=== PATIENT | female | born 1960 | race Hispanic/Latino ===

== ENCOUNTER 2024-06-18 08:55 | Emergency (ER) | payer OTHER ==
--- NOTE | 2024-06-18 09:53 | RAD REPORT ---
Exam:Shoulder Left 2+ Views HISTORY: Left shoulder pain FINDINGS: No fracture seen. Borderline widening AC joint may indicate a mild sprain of the ligament.
[2024-06-18 09:55] LABS: Specific Gravity 1.029 (1.005-1.030); Sqamous Epithelial <5 /HPF (None Seen); Urine Bacteria None Seen /HPF (<20); Urine Bilirubin NEGATIVE (Negative); Urine Blood Negative (Negative); Urine Clarity Clear (Clear); Urine Color Light-Yellow (Yellow); Urine Culture Reflex Order NOT NEEDED; Urine Glucose NEGATIVE (Negative); Urine Ketones NEGATIVE (Negative); Urine Micro Reflex YN NO BILL MICROSCOPIC; Urine Mucus Slight /HPF (None Seen); Urine Nitrite NEGATIVE (Negative); Urine Protein NEGATIVE (Negative); Urine RBC <5 /HPF (None Seen); Urine Urobilinogen Normal (Normal); Urine WBC <5 /HPF (<5); Urine pH 5.5 (5.0-7.0)
[2024-06-18] MEDS ORDERED: IBUPROFEN 200 MG TAB PO ONE (09:58)
[2024-06-18] MEDS ORDERED: methocarbamoL 750 MG TAB ONE (09:58)
--- NOTE | 2024-06-18 10:11 | EDPHYS ---
Physician Documentation [facility] Name: Diann Jack Age: 64 yrs Sex: Female : 1960 Arrival Date: 06/18/2024 Time: 08:55 Bed 14 Private MD: ED Physician Eros Paiz HPI: 06/18 09:30 This 64 yrs old Female presents to ER via Ambulatory with complaints of cp Shoulder Injury. 09:30 The patient or guardian complains of an injury, pain, that is acute. posterior and cp upper shoulder. Context: resulted from a fall, The patient reports no obvious deformity. Onset: The symptoms/episode began/occurred yesterday. Modifying factors: The symptoms are aggravated by movement. Details of fall: The patient fell from an upright position, while standing. Patient also concerned about possible uti and reports not finishing prescribed antibiotic recently. Denies any urinary symptoms. Historical: - Allergies: 09:18 No Known Allergies; hb - Home Meds: 09:18 None [Active]; hb - PMHx: 09:18 Breast CA; hb - PSHx: 09:18 Breast Reconstruction; Liposuction; section; x 3; Bilat Ears; hb - Immunization history:: Adult Immunizations up to date. - Infectious Disease History:: Denies. - Social history:: Smoking status: Patient denies any tobacco usage or history of. ROS: 09:35 Eyes: Negative for injury, pain, redness, and discharge, cp 09:35 Constitutional: Negative for body aches, chills, fever, poor PO intake, 09:35 ENT: Negative for drainage from ear(s), ear pain, sore throat, difficulty swallowing, difficulty handling secretions, 09:35 Neck: Positive for left side pain, Negative for stiffness, 09:35 Cardiovascular: Negative for chest pain, palpitations, 09:35 Respiratory: Negative for cough, shortness of breath, wheezing, 09:35 Abdomen/GI: Negative for abdominal pain, nausea, vomiting, and diarrhea, 09:35 MS/extremity: Positive for pain, tenderness, of the left shoulder, Negative for deformity, paresthesias, 09:35 Neuro: Negative for altered mental status, dizziness, headache, loss of consciousness, syncope, weakness, 09:35 All other systems are negative, Exam: 09:40 Constitutional: The patient appears in no acute distress, alert, awake, non-toxic, well cp developed, well nourished, uncomfortable, 09:40 Head/Face: Normocephalic, atraumatic. cp 09:40 Neck: C-spine: vertebral tenderness, is not appreciated, crepitus, is not appreciated, ROM/movement: limited range of motion, is not appreciated, mild left side lateral tenderness, 09:40 Chest/axilla: Inspection: normal, Palpation: crepitus, is not appreciated, tenderness, is not appreciated, 09:40 Cardiovascular: Rate: normal, Rhythm: regular, 09:40 Respiratory: the patient does not display signs of respiratory distress, Respirations: normal, no use of accessory muscles, no retractions, labored breathing, is not present, Breath sounds: are clear throughout, no decreased breath sounds, 09:40 Back: pain, that is moderate, of the left trapezius and left scapular area, vertebral tenderness, is not appreciated, 09:40 Musculoskeletal/extremity: ROM: limited passive range of motion due to pain, in the left shoulder, Pulses: noted to be 2+ in the left radial artery, Joints: the left AC joint displays tenderness, 09:40 Neuro: Orientation: to person, place \T\ time. Mentation: is normal, Vital Signs: 09:16 BP 134 / 74; Pulse 87; Resp 16; Temp 98.3; Pulse Ox 98% on R/A; Weight 54.43 kg; Height hb 5 ft. 0 in. ; Pain 8/10; 09:16 Body Mass Index 23.44 (54.43 kg, 152.4 cm) hb 09:16 Pain Scale: Adult hb MDM: 10:10 Data reviewed: vital signs, nurses notes, lab test result(s), urinalysis, radiologic studies, plain films, and as a result, I will discharge patient. 10:10 I considered the following discharge prescriptions or medication management in the emergency department Medications were administered in the Emergency Department. See MAR. Independent interpretation of the following test(s) in the Emergency Department X-Ray: My interpretation is images of left shoulder negative for fracture. 10:11 Medical Screening Exam initiated 06/18 09:12 Order name: Urinalysis W/Microscopic; Complete Time: 09:56 06/18 09:56 Interpretation: Reviewed. cp 06/18 09:12 Order name: EMMETT Shoulder LEFT 2 view; Complete Time: 09:56 cp 06/18 09:56 Interpretation: Report reviewed. cp 06/18 09:49 Order name: Pamela; Complete Time: 10:19 cp Administered Medications: 10:00 Drug: Methocarbamol PO 750 mg PO once Route: PO; bp 10:20 Follow up: Response: No adverse reaction bp 10:00 Drug: Ibuprofen PO 600 mg PO once Route: PO; bp Disposition Summary: 06/18/24 10:11 Discharge Ordered Notes: Location: Home cp Problem: new cp Symptoms: have improved cp Condition: Stable cp Diagnosis - Pain in left shoulder cp - Fall on same level from slipping, tripping and stumbling with subsequent striking cp against object Followup: cp - With: Private Physician - When: 1 week - Reason: Recheck today's complaints Discharge Instructions: - Discharge Summary Sheet cp - Shoulder Pain cp - Shoulder Range of Motion Exercises cp Forms: - Medication Reconciliation Form cp - Antibiotic Education cp - Prescription Opioid Use cp - Patient Portal Instructions cp - Leadership Thank You Letter cp Prescriptions: - diclofenac potassium 50 mg Oral tablet - take 1 tablet ORAL route every 12 hours As needed; 20 tablet; Refills: 0, cp Product Selection Permitted - methocarbamol 750 mg Oral tablet - take 1 tablet ORAL route 3 times per day; 30 tablet; Refills: 0, Product cp Selection Permitted Addendum: 06/20/2024 09:20 Co-signature as Attending Physician, Eros Paiz MD I reviewed the patient's care r t provided by the Advanced Practice Provider and agree with the diagnosis and treatment plan. Signatures: Dispatcher [employer] EDMS Mike Gupta PA PA cp Blaire Box, ORLIN RN Jerry Orlando RN RN bp Eros Paiz MD MD rt Corrections: (The following items were deleted from the chart) 06/18 09:13 09:13 Shoulder Left 2 View+RAD.RAD.BRZ ordered. EDMS EDMS 09: 09:13 Urinalysis W/Microscopic+U.LAB.BRZ ordered. EDMS EDMS 09:18 09:18 PMHx: None; hb hb 06/19 09:41 09:35 Constitutional: Negative for body aches, chills, fever, poor PO intake, cp cp 09:41 09:35 Cardiovascular: Negative for chest pain, palpitations, cp cp 09:41 09:35 Respiratory: Negative for cough, shortness of breath, wheezing, cp cp 09:41 09:35 Abdomen/GI: Negative for abdominal pain, nausea, vomiting, and diarrhea, cp cp :41 09:35 Eyes: Negative for injury, pain, redness, and discharge, cp cp :41 09:35 ENT: Negative for drainage from ear(s), ear pain, sore throat, difficulty cp swallowing, difficulty handling secretions, cp : 09:35 Neck: Positive for left side pain, Negative for stiffness, cp cp 09:41 09:35 Neuro: Negative for altered mental status, dizziness, headache, loss of cp consciousness, syncope, weakness, cp : 09:35 MS/extremity: Positive for pain, tenderness, of the left shoulder, Negative for cp deformity, paresthesias, cp : 09:35 All other systems are negative, cp cp
--- NOTE | 2024-06-18 10:11 | ER ---
Nurse's Notes [facility] Name: Diann Jack Age: 64 yrs Sex: Female : 1960 Arrival Date: 06/18/2024 Time: 08:55 Bed 14 Private MD: Diagnosis: Pain in left shoulder;Fall on same level from slipping, tripping and stumbling with subsequent striking against object Presentation: 06/18 09:16 Chief complaint: Left shoulder pain after mechanical fall from standing yesterday. Also hb c/o dysuria that persists after recent abx use. Coronavirus screen: At this time, the client does not indicate any symptoms associated with coronavirus-19. Ebola Screen: No symptoms or risks identified at this time. Initial Sepsis Screen: Does the patient meet any 2 criteria? No. Patient's initial sepsis screen is negative. Does the patient have a suspected source of infection? No. Patient's initial sepsis screen is negative. Risk Assessment: Do you want to hurt yourself or someone else? Patient reports no desire to harm self or others. Onset of symptoms was June 18, 2024. 09:16 Method Of Arrival: Ambulatory 09:16 Acuity: LEON 4 hb Triage Assessment: :20 General: Appears in no apparent distress. uncomfortable, Behavior is cooperative, bp appropriate for age, anxious. Pain: Complains of pain in anterior aspect of left shoulder. EENT: No deficits noted. Neuro: No deficits noted. Cardiovascular: No deficits noted. Respiratory: No deficits noted. GI: No deficits noted. : No signs and/or symptoms were reported regarding the genitourinary system. Derm: No deficits noted. Musculoskeletal: Reports pain in anterior aspect of left shoulder. Injury Description: Bruise. Historical: - Allergies: 09:18 No Known Allergies; hb - Home Meds: 09:18 None [Active]; hb - PMHx: 09:18 Breast CA; hb - PSHx: 09:18 Breast Reconstruction; Liposuction; section; x 3; Bilat Ears; hb - Immunization history:: Adult Immunizations up to date. - Infectious Disease History:: Denies. - Social history:: Smoking status: Patient denies any tobacco usage or history of. Screenin:20 [facility] ED Fall Risk Assessment (Adult) History of falling in the last 3 months, bp including since admission Yes- single mechanical fall (1 pt) Confusion or Disorientation No (0 pts) Intoxicated or Sedated No (0 pts) Impaired Gait No (0 pts) Mobility Assist Device Used No (0 pt) Altered Elimination No (0 pt) Score/Fall Risk Level 0 - 2 = Low Risk Oriented to surroundings. Abuse screen: Denies threats or abuse. Denies injuries from another. Nutritional screening: No deficits noted. Tuberculosis screening: No symptoms or risk factors identified. Assessment: 09:20 General: Appears in no apparent distress. uncomfortable, Behavior is cooperative, bp appropriate for age, anxious. Vital Signs: 09:16 BP 134 / 74; Pulse 87; Resp 16; Temp 98.3; Pulse Ox 98% on R/A; Weight 54.43 kg; Height hb 5 ft. 0 in. ; Pain 8/10; 09:16 Body Mass Index 23.44 (54.43 kg, 152.4 cm) hb 09:16 Pain Scale: Adult hb ED Course: 08:58 Patient arrived in ED. im 09:01 Jerry Winkler, ORLIN is Primary Nurse. bp 09:06 Mike Gupta PA is PHCP. cp 09:06 Eros Paiz MD is Attending Physician. cp 09:18 Triage completed. hb 09:18 Arm band placed on. hb 09:20 Patient has correct armband on for positive identification. bp 09:20 No provider procedures requiring assistance completed. Patient did not have IV access bp during this emergency room visit. 09:42 XRAY Shoulder LEFT 2 view In Process Unspecified. EDMS 10:22 Sling applied to left arm. bp Administered Medications: 10:00 Drug: Methocarbamol PO 750 mg PO once Route: PO; bp 10:20 Follow up: Response: No adverse reaction bp 10:00 Drug: Ibuprofen PO 600 mg PO once Route: PO; bp Medication: 09:20 VIS not applicable for this client. bp Outcome: 10:11 Discharge ordered by . cp 10:22 Discharged to home ambulatory, with family, bp 10:22 Condition: stable 10:22 Discharge instructions given to patient, family, Instructed on discharge instructions, follow up and referral plans. medication usage, Demonstrated understanding of instructions, follow-up care, medications, Prescriptions given X 2, 10:22 Patient left the ED. bp Signatures: Dispatcher [employer] EDMS Page, Mike, PA PA cp Box, Blaire, RN RN hb Jerry Winkler RN RN Zoie Perry Corrections: (The following items were deleted from the chart) :18 09:18 PMHx: None; hb hb
[2024-06-18 10:59] VITALS: BP 134/74; TEMP 98.3; O2SAT 98
== END 2024-06-18 10:22 | disposition home or self-care (01) ==
LOC: ER 08:55
DX: M25.512 Pain in left shoulder (principal); W01.10XA Fall on same level from slipping, tripping and stumbling with subsequent striking against unspecified object, initial encounter
CPT/HCPCS: 81001; 99283